=== PATIENT | male | born 1990 | race African-American/Black ===

== ENCOUNTER 2018-07-17 19:03 | Emergency (ER) | payer SELFPAY | END 2018-07-17 20:12 | disposition left against medical advice (07) | LOC: ER 19:03 | DX: Z53.21 Procedure and treatment not carried out due to patient leaving prior to being seen by health care provider (principal) ==

== ENCOUNTER 2018-07-17 20:18 | Emergency (ER) | payer SELFPAY ==
[~2018-07-17] VITALS: Ht 193 cm; Wt 118.0 kg
[2018-07-17] MEDS ORDERED: ONDANSETRON HCL 4MG/2ML INJ IV STA (21:22)
[2018-07-17] MEDS ORDERED: SODIUM CHLORIDE 0.9% 1,000 ML IV ONE (21:22)
[2018-07-17] MEDS ORDERED: KETOROLAC 30MG/ML VIAL IV STA (21:22)
[2018-07-17 21:53] LABS: BASOPHILS % 1.2 % (0.0-2.0); EOSINOPHILS % 5.4 % (0.0-5.0); HEMATOCRIT. 44.6 % (42.0-52.0); HEMOGLOBIN. 15.5 g/dL (14.0-18.0); LYMPHOCYTES % 49.1 % (20.0-50.0); MEAN CORPUSCULAR HEMOGLOBIN 29.9 pg (28.0-32.0); MEAN CORPUSCULAR VOLUME 86.4 fL (80.0-94.0); MEAN PLATELET VOLUME 8.5 fl (7.4-10.4); MONOCYTES % 4.6 % (2.0-8.0); NEUTROPHILS % 39.7 % (40.0-76.0); PLATELET 222 x1000/uL (130-400); RED BLOOD CELL COUNT 5.17 mill/uL (4.7-6.1); RED CELL DISTRIBUTION WIDTH 13.2 % (11.6-14.6)
[2018-07-17 21:56] LABS: CHLORIDE 108 mEq/L (98-107)
[2018-07-17 23:20] VITALS: BP 156/95
== END 2018-07-17 23:23 | disposition home or self-care (01) ==
LOC: ER 20:18
DX: R51 Headache (principal); Z76.0 Encounter for issue of repeat prescription; I10 Essential (primary) hypertension; Z88.0 Allergy status to penicillin; Z87.891 Personal history of nicotine dependence; Z98.890 Other specified postprocedural states
CPT/HCPCS: 36415; 80048; 85025; 96374; 96375; 99283; J1885; J2405; J7030